=== PATIENT | male | born 1995 | race Asian ===

== ENCOUNTER 2020-08-09 01:46 | Emergency (ER) | payer OTHER ==
[~2020-08-09] VITALS: Ht 167.6 cm; Wt 72.6 kg
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
[2020-08-09] MEDS: IBUPROFEN 600 MG TABLET PO ONE (02:06)
[2020-08-09] MEDS ORDERED: IBUPROFEN 600 MG TABLET ONE (02:09)
--- NOTE | 2020-08-09 02:13 | NUR ---
BROUGHT TO CT AND BACK
[2020-08-09] MEDS ORDERED: IBUP-1957 PO (02:46)
--- NOTE | 2020-08-09 03:19 | NUR ---
Patient discharged to home in stable condition. Written and verbal after care instructions given. Patient verbalizes understanding of instruction and RX. Pt ambulated out of ED. VSS.
[2020-08-09 03:26] VITALS: BP 128/76
== END 2020-08-09 03:01 | disposition home or self-care (01) ==
LOC: ER 01:50
DX: S63.591A Other specified sprain of right wrist, initial encounter (principal); S00.03XA Contusion of scalp, initial encounter; S50.01XA Contusion of right elbow, initial encounter; Z91.013 Allergy to seafood; V49.49XA Driver injured in collision with other motor vehicles in traffic accident, initial encounter; Y93.89 Activity, other specified; Y92.413 State road as the place of occurrence of the external cause; Y99.8 Other external cause status
CPT/HCPCS: 70450-TC